=== PATIENT | female | born 1990 | race Caucasian/White ===

== ENCOUNTER → 2019-11-14 | Outpatient (CLI) | payer OTHER ==
--- NOTE | 2019-11-14 15:34 | US ---
EXAMINATION TYPE: Transabdominal DATE OF EXAM: 11/14/2019 1:07 PM COMPARISON: NONE CLINICAL HISTORY: Z34.90 supervision of normal . early OB EXAM PERFORMED: Transabdominal (TA) EXAM MEASUREMENTS: GESTATIONAL AGE / DATING Physician Established: Not yet established Dates by LMP: (9 weeks/2 days) EDC: 06/16/20 Dates by First Scan: No previous this is first scan Dates by Current Scan for: (8 weeks/6 days) EDC: 06/19/20 MATERNAL ANATOMY Uterus: 11.4 x 5.2 x 8.2cm Right Ovary: 2.7 x 2.2 x 2.8cm Left Ovary: 2.1 x 1.9 x 2.1cm Post CDS / Adnexa: wnl Presence of free fluid: no Presence of corpus luteal cyst: not seen Presence of subchorionic bleed: no GESTATION / SURVEY CRL: 2.1cm (8 weeks/6 days) MSD: wnl Yolk Sac (normal less than 6mm): 0.5cm Heart Rate: 160 bpm Rhythm: Normal IUP: Viable IUP Date of LMP: 09/10/19 IMPRESSION: Single viable intrauterine as discussed above.
== END | disposition home or self-care (01) ==
LOC: RADUSWWP 12:12
PROVIDERS: ATTEND Obstetrics & Gynecology
DX: Z34.90 Encounter for supervision of normal pregnancy, unspecified, unspecified trimester (principal); Z3A.08 8 weeks gestation of pregnancy
CPT/HCPCS: 76801

== ENCOUNTER 2022-05-23 08:33 | Inpatient (IN) | payer OTHER ==
[2022-05-23 09:02] LABS: Glucose,Whole Blood 147 mg/dL (70-110)
[2022-05-23] MEDS ORDERED: CITRIC ACID-SODIUM CITRATE 15 ML CUP PO ONE (09:09)
[2022-05-23] MEDS ORDERED: METHYLERGONOVINE 0.2 MG/ML 1 ML AMP IM PRN (09:09)
[2022-05-23] MEDS ORDERED: miSOPROStoL 200 MCG TAB PO PRN (09:09)
[2022-05-23] MEDS ORDERED: LACTATED RINGERS 1,000 ML IV ONE (09:09)
[2022-05-23] MEDS ORDERED: CARBOPROST TROMETHAMINE 250 MCG/ML 1 ML AMP IM PRN (09:09)
[2022-05-23] MEDS ORDERED: TRANEXAMIC ACID IN NACL,ISO-OS 1,000 MG in EMPTY BAG 1 BAG IV PRN (09:09)
[2022-05-23] MEDS ORDERED: OXYTOCIN 10 UNIT/ML 1 ML VIAL IM PRN (09:09)
[2022-05-23] MEDS ORDERED: LACTATED RINGERS 1,000 ML IV SCH (09:15)
[2022-05-23] MEDS ORDERED: ePHEDrine 50 MG/ML 1 ML VIAL ONE (09:27)
[2022-05-23] MEDS ORDERED: PHENYLEPHRINE-0.9% NACL SYG 1,000 MCG/10 ML SYRINGE ONE (09:27)
[2022-05-23] MEDS ORDERED: PROPOFOL 10 MG/ML 20 ML VIAL IV ONE (09:27)
[2022-05-23] MEDS ORDERED: ONDANSETRON 4 MG/2 ML VIAL ONE (09:27)
[2022-05-23] MEDS ORDERED: fentaNYL (PF) 50 MCG/ML 2 ML AMP ONE (09:27)
[2022-05-23] MEDS ORDERED: MORPHINE SULFATE (PF) 0.3 MG/0.3 ML SYR ONE (09:27)
[2022-05-23] MEDS ORDERED: NALBUPHINE 10 MG/ML (1 ML AMP) ONE (09:27)
[2022-05-23] MEDS ORDERED: SODIUM CHLORIDE 0.9% 100 ML BAG ONE (09:27)
[2022-05-23] MEDS ORDERED: ALBUMIN HUMAN 5% (12.5gm) 250 ML BOTTLE IVPB ONE (09:27)
[2022-05-23] MEDS ORDERED: ceFAZolin 1,000 MG VIAL ONE (09:27)
[2022-05-23] MEDS ORDERED: OXYTOCIN 30 UNITS/500 ML NS BAG IV ONE (09:27)
[2022-05-23] MEDS ORDERED: SUCCINYLCHOLINE CHLORIDE 200 MG/10 ML VIAL IV ONE (09:27)
[2022-05-23] MEDS ORDERED: DEXAMETHASONE SOD PHOSPHATE 4 MG/ML 1 ML VIAL ONE (09:27)
[2022-05-23 09:35] LABS: Basophils % (A) 0 %; Eosinophils % (A) 0 %; HCT 36.3 % (34.0-46.0); HGB 12.2 gm/dL (11.4-16.0); Lymphocytes # (A) 1.7 k/uL (1.0-4.8); Lymphocytes % (A) 13 %; MCH 28.9 pg (25.0-35.0); MCHC 33.6 g/dL (31.0-37.0); Mean Platelet Volume 10.2; Monocytes # (A) 0.5 k/uL (0-1.0); Monocytes % (A) 4 %; Neutrophils # (A) 10.7 k/uL (1.3-7.7); Neutrophils % (A) 81 %; Platelet Count 190 k/uL (150-450); RBC 4.22 m/uL (3.80-5.40); RDW 15.6 % (11.5-15.5); WBC 13.2 k/uL (3.8-10.6)
[2022-05-23] MEDS ORDERED: ZOLPIDEM 5 MG TAB PO PRN (10:47)
[2022-05-23] MEDS ORDERED: diphenhydrAMINE 50 MG CAP PO PRN (10:47)
[2022-05-23] MEDS ORDERED: LANOLIN CREAM 5 GM TUBE TOPICAL PRN (10:47)
[2022-05-23] MEDS ORDERED: ONDANSETRON 4 MG/2 ML VIAL IVP PRN (10:47)
[2022-05-23] MEDS ORDERED: MEASLES-MUMPS-RUBELLA VACC/PF 12,500 UNIT/0.5 ML VIAL SQ ONE (10:47)
[2022-05-23] MEDS ORDERED: METOCLOPRAMIDE 5 MG/ML 2 ML VIAL IVP PRN (10:47)
[2022-05-23] MEDS ORDERED: diphenhydrAMINE 50 MG/ML 1 ML VIAL IVP PRN ×2 (10:47)
[2022-05-23] MEDS ORDERED: diphenhydrAMINE 25 MG CAP PO PRN (10:47)
[2022-05-23] MEDS ORDERED: NALOXONE 0.4 MG/ML 1 ML VIAL IV PRN (10:47)
[2022-05-23] MEDS ORDERED: OXYTOCIN 30 UNITS/500 ML NS 30 UNIT in SALINE 1 500ML.BAG IV SCH (11:00)
--- NOTE | 2022-05-23 11:01 | P.HPOB ---
History of Present Illness H&P Date: 05/23/22 Chief Complaint: Contractions This is a 32 year old at 39 weeks and 1 day with EDC of 05/29/2022 (by 18 week US) who presents to labor and delivery 4 hours before her scheduled repeat section with frequent, painful contractions that started the morning of 05/22. She denies leakage of fluid. She also complains of gas-like pain and pain in her right shoulder. The was complicated by diet-controlled gestational diabetes. Obstetric history: 3 FTCS, 1st complicated by gestational HTN. Last 2 complicated by gestational diabetes. Maternal serologies: blood type O positive, antibody negative, rubella NON- IMMUNE, VDRL non-reactive, HBsAg negative, HIV negative, GBS POSITIVE. Past Medical History Past Surgical History: Section (x3) Medications and Allergies Home Medications Medication Instructions Recorded Confirmed Type Vit No.179/Iron/Folic 1 each PO DAILY 05/23/22 05/23/22 History [ Tablet] Allergies Allergy/AdvReac Type Severity Reaction Status Date / Time No Known Allergies Allergy Verified 05/23/22 08:53 Exam Intake and Output 05/22/22 05/23/22 05/23/22 22:59 06:59 14:59 Other: Weight 112.945 kg Focused physical exam is performed. The patient appears in distress from pain. She is diaphoretic. Abdomen is tender to palpation. heart tones are Category I with baseline of 140s, moderate variability, recurrent late decelerations. Tocometer is graphing contractions every 2-3 minutes. Results Result Diagrams: 05/23/22 09:00 Abnormal Lab Results - Last 24 Hours (Table) 05/23/22 05/23/22 05/23/22 Range/Units 08:56 09:00 09:00 WBC 13.2 H (3.8-10.6) k/uL RDW 15.6 H (11.5-15.5) % Neutrophils # 10.7 H (1.3-7.7) k/uL POC Glucose (mg/dL) 147 H (70-110) mg/dL Crossmatch See Detail Assessment and Plan Assessment: 32 year old at 39 weeks and 1 day who presents to L&D hours before her scheduled repeat C/S in labor, r/o placental abruption Plan: Admit, NPO, mIVF. Plan is to more to OR immediately for urgent repeat C/S with bilateral tubal ligation. Time with Patient: Less than 30 (15 minutes)
--- NOTE | 2022-05-23 11:18 | P.OP ---
Date of Procedure: 05/23/22 Preoperative Diagnosis: 1. 39 week intrauterine gestation 2. Diet-controlled gestational diabetes 3. Maternal Class III obesity 4. Labor 5. GBS positive 6. Category II Heart Tones Postoperative Diagnosis: 1. 39 week intrauterine gestation 2. Diet-controlled gestational diabetes 3. Maternal Class III obesity 4. Labor 5. Category II Heart Tones 6. GBS positive 7. Uterine rupture 8. Placental abruption 9. Breech presentation Procedure(s) Performed: Repeat Lower Transverse Section with Bilateral Salpingectomy Implants: None Anesthesia: GETA, spinal Surgeon: Kisha Villafana Lpn Per Diem #1: Keenan Garcia Estimated Blood Loss (ml): 2,000 IV fluids (ml): 1,000 (plus 2 of albumin, 2 units of pRBCs) Urine output (ml): 50 Pathology: other (placenta, bilateral fallopian tubes) Condition: stable Disposition: floor Indications for Procedure: This is a 32 year old at 39 weeks and 1 day who presents hours before her scheduled repeat section with severe abdominal pain, frequent uterine contractions, and right shoulder pain. heart tracing shows persistent Category II tones. Urgent section is recommended to the patient for maternal and well being. Risks of bleeding, infection, damage to surrounding structures including bladder/bowel/ureters, as well as postoperative VTE are discussed with the patient. She understands these risks and agrees to proceed with section as scheduled. Operative Findings: Upon entering the fascia, 1,000 mL in hemoperitoneum is released. Promptly after the buttocks is presenting and the fetus is delivered using the usual breech maneuvers. Placenta was noted to be abrupting from the uterine wall. After the patient was stabilized and the fetus had been delivered, there was a mesh-like material noted to be incorporated into the uterine incision. Uterus otherwise unremarkable, bilateral fallopian tubes and ovaries within normal l imits. Another 1,000 mL in hemoperitoneum was removed during irrigation. The fetus had apgars of 3/6/7 and weight of 9#15oz (4500 grams). . Description of Procedure: The patient was taken to the operating room where spinal anesthesia was found to be adequate. 3 grams of Ancef were given for infection prophylaxis. She was prepared and draped in the dorsal supine position with a leftward tilt. A Pfannenstiel skin incision was made with the scalpel. The incision was carried down to the fascia with a bovie. The fascia was incised and extended laterally with Morris scissors. The superior aspect of the fascia was grasped with Camille clamps. The underlying rectus muscle was dissected off sharply with Morris scissors. In a similar fashion, the inferior aspect of the fascia was elevated with Camille clamps and the rectus muscle and pyramidalis were dissected off. Excellent hemostasis was achieved with the bovie. The rectus muscle was in the midline down to the level of the pubic symphysis. Pre- peritoneal fatty tissue was bluntly dissected to expose the peritoneum. The peritoneum was found to be free of adherent bowel and entered bluntly. After entering the peritoneum, 1,000 mL of blood clots in the abdomen were released as described in the findings. This was followed by the buttocks. The fetus was in elena breech presentation. The amniotic sac appeared to already be ruptured. The fetus was delivered using the usual breech maneuvers. The infant was delivered with no difficulty. The cord was clamped and cut. The was handed off to the meteorologist liaison. IV oxytocin was initiated to facilitate uterine contractions. The placenta was noted to have abrupted and was delivered intact. The placenta was sent off to pathology. At this time, anesthesia noted that the patient's vitals were not stable. Intraoperative hemoglobin was 9.9 (down from 12.2). 2 of albumin were given. The order was also placed for the patient to re ceive 2 units of packed red blood cells. The patient was placed under general endotracheal anesthesia at this time. The uterus was then exteriorized and the inside of the uterus was gently wiped with a lap sponge to assure complete removal of placental membranes. The prior uterine incision was completed dehisced. Of note, there was a mesh-like material embedded into the prior uterine scar. The uterine incision was closed with a 0-Polysorb suture in a running locked fashion. A second layer of 0-Polysorb in a locking fashion was placed for hemostasis. The ovaries and tubes were found to be normal. The LigaSure device was used to ligate and remove bilateral fallopian tubes. Tubes were sent to pathology. The uterus, tubes, and ovaries were then gently returned to the abdominal cavity. The blood clots and fluid were wiped out of the abdomen and pelvis with moist laparotomy sponges. The uterine incision was reinspected and excellent hemostasis was noted. The peritoneum was closed with 2-0 Vicryl in a running fashion. The fascial layer was closed with a 0-Vicryl suture. The subcuticular layer was closed with 2-0 Plain Gut. The skin was closed with lizzie. The patient tolerated the procedure well. All the counts were correct times two. The patient was taken to the recovery room in a stable condition.
[2022-05-23] MEDS: ACETAMINOPHEN TAB 500 MG TAB PO SCH ×2 (13:06→19:45)
[2022-05-23] MEDS: SIMETHICONE 80 MG CHEWABLE PO PRN ×2 (13:06→22:30)
[2022-05-23 14:31] LABS: Glucose,Whole Blood 179 mg/dL (70-110)
[2022-05-23] MEDS: INSULIN ASPART (NovoLOG) 100 UNIT/ML VIAL SQ SCH ×3 (16:06→20:29)
[2022-05-23] MEDS: KETOROLAC 15 MG/ML 1 ML VIAL IVP SCH ×2 (16:21→22:21)
--- NOTE | 2022-05-23 16:55 | P.PN ---
Progress Note - Text Progress Note Date: 05/23/22 S: Patient doing well. Finishing second bag of packed RBCs. Reviewed with the patient what occurred this morning and the operative findings. All questions answered. O: Vital signs stable. A/P: 32 yo POD#0 s/p rLTCS with BS complicated by complete uterine rupture and placental abruption. Continue inpatient management. Await 6 hour post-transfusion H+H.
[2022-05-23] MEDS: LACTATED RINGERS 1,000 ML IV SCH ×2 (17:06→19:46)
[2022-05-23 17:16] LABS: Glucose,Whole Blood 177 mg/dL (70-110)
--- NOTE | 2022-05-23 18:29 | P.CONS ---
History of Present Illness - Reason for Consult Consult date: 05/23/22 - Chief Complaint hyperglycemia - History of Present Illness 32-year-old woman with history of diabetes with an A1c of 6.0 percent, gestational hypertension presented to labor and delivery with frequent, painful contractions and is now status post with bilateral salpingectomy for noted complication of uterine rupture and placental abruption. Medicine was consulted for hyperglycemia in the context of gestational diabetes. Patient has no complaints at this time except for some sweats as she is getting blood. She denies fevers, chills, nausea, vomiting, chest pain, palpitations, CVA, presyncope, cough, dyspnea, numbness/weakness of extremities. She denies polyuria, polydipsia. Upon my evaluation, patient was afebrile 106/54, heart rate 103, 96% on room air. CBC was reviewed and demonstrated leukocytosis of 13.2, hemoglobin of 12.2. Postprandial blood sugars taken 2 hours after meals she'll range between 147-179. Hemoglobin A1c was 6.2%. All Systems reviewed and pertinent positives and negatives noted in HPI, all other symptoms are negative Gen: in no apparent distress, resting comfortably in bed Eyes: PERRL, no scleral injection or icterus HENT: normocephalic, atraumatic, good hearing acuity, moist mucous membranes Neck: no tracheal deviation, full range of motion Resp: good air exchange, breathing comfortably with no accessory muscle use, no tactile fremitus CVS: good distal perfusion x 4, no pitting edema GI: soft, NTTP, ND, no hepatosplenomegaly : no suprapubic tenderness, no CVAT, alvarez catheter not present MSK: no clubbing, no cyanosis, no noted contractures of extremities Skin: no noted rashes, petechiae; temperature of skin is appropriate Neuro: moving all extremities without signs of weakness, CN II-XII intact Psych: cooperative, euthymic mood, insight and judgment intact Assessment: Gestational diabetes with hyperglycemia Prediabetes Gestational hypertension Obesity, class III Plan: Vital signs reviewed and noted in HPI CBC, sugars, hemoglobin A1c were reviewed and noted in HPI REVIEW APPRAISER operative note and progress note reviewed Change sugar checks to before meals at bedtime Low-dose sliding scale insulin On discharge, recommend diet changes, 6 months , patient may consider metformin Recommend outpatient weight loss plan Patient is full code Past Medical History Past Medical History: GERD/Reflux History of Any Multi-Drug Resistant Organisms: None Reported Past Surgical History: Section (x3) Past Anesthesia/Blood Transfusion Reactions: No Reported Reaction Past Psychological History: ADD/ADHD, Anxiety, Depression Smoking Status: Former smoker Past Alcohol Use History: None Reported Past Drug Use History: None Reported - Past Family History Father Family Medical History: Diabetes Mellitus, Hypertension Mother Family Medical History: Diabetes Mellitus, Hypertension Medications and Allergies Home Medications Medication Instructions Recorded Confirmed Type Vit No.179/Iron/Folic 1 each PO DAILY 05/23/22 05/23/22 History [ Tablet] Allergies Allergy/AdvReac Type Severity Reaction Status Date / Time No Known Allergies Allergy Verified 05/23/22 08:53 Physical Exam Osteopathic Statement: *. No significant issues noted on an osteopathic structural exam other than those noted in the History and Physical/Consult. Vitals: Vital Signs Temp Pulse Pulse Resp BP BP Pulse Ox 05/23/22 17:16 98.4 F 103 H 17 106/54 96 05/23/22 16:00 84 17 90/48 96 05/23/22 15:38 96.1 F L 97 17 107/56 94 L 05/23/22 15:18 9.5 F L 95 18 117/60 05/23/22 15:09 96.4 F L 93 17 115/56 96 05/23/22 14:19 96.4 F L 106 H 17 113/53 97 05/23/22 13:03 95.8 F L 110 H 17 105/56 93 L 05/23/22 12:52 96.2 F L 110 H 17 108/56 05/23/22 12:33 96.5 F L 102 H 18 119/61 96 05/23/22 12:32 96.5 F L 102 H 18 119/61 96 05/23/22 12:03 112 H 18 129/66 100 05/23/22 11:48 116 H 18 135/83 100 05/23/22 11:33 116 H 18 129/68 100 05/23/22 11:18 115 H 18 124/62 94 L 05/23/22 11:03 96.9 F L 139 H 20 120/54 98 05/23/22 09:00 96.9 F L 139 H 18 126/64 98 Intake and Output 05/23/22 05/23/22 05/23/22 06:59 14:59 22:59 Intake Total 310 1430 Output Total 1935 350 Balance -1625 1080 Intake: IV 500 Blood Product 310 930 Rc As-1 Unit 310 [id number] Rc As-1 Unit 310 [id number] Output: Urine 250 150 Output, Quantitative 1685 200 Blood Loss Other: Voiding Method Indwelling Catheter Indwelling Catheter Weight 112.945 kg Results CBC & Chem 7: 05/23/22 09:00 Labs: Abnormal Lab Results - Last 24 Hours (Table) 05/23/22 05/23/22 05/23/22 Range/Units 08:56 09:00 09:00 WBC 13.2 H (3.8-10.6) k/uL RDW 15.6 H (11.5-15.5) % Neutrophils # 10.7 H (1.3-7.7) k/uL POC Glucose (mg/dL) 147 H (70-110) mg/dL Hemoglobin A1c 6.2 H (0.0-6.0) % Crossmatch 05/23/22 05/23/22 05/23/22 Range/Units 09:00 14:27 17:14 WBC (3.8-10.6) k/uL RDW (11.5-15.5) % Neutrophils # (1.3-7.7) k/uL POC Glucose (mg/dL) 179 H 177 H (70-110) mg/dL Hemoglobin A1c (0.0-6.0) % Crossmatch See Detail
[2022-05-23 20:21] LABS: Glucose,Whole Blood 173 mg/dL (70-110)
[2022-05-24 00:16] LABS: Basophils % (A) 0 %; Eosinophils % (A) 0 %; HCT 27.4 % (34.0-46.0); Lymphocytes # (A) 1.3 k/uL (1.0-4.8); Lymphocytes % (A) 11 %; MCHC 34.5 g/dL (31.0-37.0); MCV 87.1 fL (80.0-100.0); Mean Platelet Volume 10.9; Monocytes # (A) 0.7 k/uL (0-1.0); Monocytes % (A) 6 %; Neutrophils # (A) 9.7 k/uL (1.3-7.7); Neutrophils % (A) 82 %; Platelet Count 130 k/uL (150-450); RBC 3.14 m/uL (3.80-5.40); RDW 15.5 % (11.5-15.5); WBC 11.9 k/uL (3.8-10.6)
[2022-05-24 00:36] LABS: HGB 9.4 gm/dL (11.4-16.0)
[2022-05-24] MEDS: ACETAMINOPHEN TAB 500 MG TAB PO SCH ×4 (01:07→20:03)
[2022-05-24] MEDS: KETOROLAC 15 MG/ML 1 ML VIAL IVP SCH ×4 (04:26→23:05)
[2022-05-24] MEDS: LACTATED RINGERS 1,000 ML IV SCH (04:27)
[2022-05-24] MEDS: INSULIN ASPART (NovoLOG) 100 UNIT/ML VIAL SQ SCH ×4 (07:30→20:10)
[2022-05-24 07:32] LABS: Glucose,Whole Blood 130 mg/dL (70-110)
[2022-05-24] MEDS ORDERED: ENOXAPARIN 40 MG/0.4 ML SYRINGE SQ SCH (09:00)
--- NOTE | 2022-05-24 09:25 | P.PNOBGPC ---
Subjective - Subjective Patient reports: Reports appetite normal, Reports voiding normally, Reports pain well controlled, Reports ambulating normally : doing well, in NICU Objective - Vital Signs Latest vital signs: Vital Signs Temp Pulse Pulse Resp BP BP Pulse Ox 05/24/22 07:30 98.4 F 102 H 14 105/69 100 05/24/22 04:00 97.5 F L 93 16 101/63 98 05/24/22 00:00 98.6 F 91 16 116/68 98 05/23/22 20:00 97.9 F 78 16 109/65 98 05/23/22 17:16 98.4 F 103 H 17 106/54 96 05/23/22 16:00 84 17 90/48 96 05/23/22 15:38 96.1 F L 97 17 107/56 94 L 05/23/22 15:18 9.5 F L 95 18 117/60 05/23/22 15:09 96.4 F L 93 17 115/56 96 05/23/22 14:19 96.4 F L 106 H 17 113/53 97 05/23/22 13:03 95.8 F L 110 H 17 105/56 93 L 05/23/22 12:52 96.2 F L 110 H 17 108/56 05/23/22 12:33 96.5 F L 102 H 18 119/61 96 05/23/22 12:32 96.5 F L 102 H 18 119/61 96 05/23/22 12:03 112 H 18 129/66 100 05/23/22 11:48 116 H 18 135/83 100 05/23/22 11:33 116 H 18 129/68 100 05/23/22 11:18 115 H 18 124/62 94 L 05/23/22 11:03 96.9 F L 139 H 20 120/54 98 Intake and Output 05/23/22 05/24/22 05/24/22 22:59 06:59 14:59 Intake Total 1430 Output Total 750 600 Balance 680 -600 Intake: IV 500 Blood Product 930 Rc As-1 Unit 310 [id number] Output: Urine 550 600 Uretheral (Nugent) 200 Output, Quantitative 200 Blood Loss Other: Voiding Method Indwelling Catheter - Exam Extremities: Present: normal Abdomen: Present: normal appearance, soft. Absent: distention, tenderness Incision: Present: normal, dry, intact, dressed Uterus: Present: normal, firm (uterine fundus was tonic and appropriately tender around the umbilicus.) - Labs Labs: Abnormal Lab Results - Last 24 Hours (Table) 05/23/22 05/23/22 05/23/22 Range/Units 09:00 09:00 09:00 WBC 13.2 H (3.8-10.6) k/uL RBC (3.80-5.40) m/uL Hgb (11.4-16.0) gm/dL Hct (34.0-46.0) % RDW 15.6 H (11.5-15.5) % Plt Count (150-450) k/uL Neutrophils # 10.7 H (1.3-7.7) k/uL POC Glucose (mg/dL) (70-110) mg/dL Hemoglobin A1c 6.2 H (0.0-6.0) % Crossmatch See Detail 05/23/22 05/23/22 05/23/22 Range/Units 14:27 17:14 20:20 WBC (3.8-10.6) k/uL RBC (3.80-5.40) m/uL Hgb (11.4-16.0) gm/dL Hct (34.0-46.0) % RDW (11.5-15.5) % Plt Count (150-450) k/uL Neutrophils # (1.3-7.7) k/uL POC Glucose (mg/dL) 179 H 177 H 173 H (70-110) mg/dL Hemoglobin A1c (0.0-6.0) % Crossmatch 05/23/22 05/24/22 Range/Units 23:57 07:30 WBC 11.9 H (3.8-10.6) k/uL RBC 3.14 L (3.80-5.40) m/uL Hgb 9.4 L D (11.4-16.0) gm/dL Hct 27.4 L (34.0-46.0) % RDW (11.5-15.5) % Plt Count 130 L (150-450) k/uL Neutrophils # 9.7 H (1.3-7.7) k/uL POC Glucose (mg/dL) 130 H (70-110) mg/dL Hemoglobin A1c (0.0-6.0) % Crossmatch Assessment and Plan (1) S/P section Current Visit: Yes Status: Acute Code(s): Z98.891 - HISTORY OF UTERINE SCAR FROM PREVIOUS SURGERY SNOMED Code(s): 738443558 Plan: continue routine and postoperative care. The patient may be stable for discharge as early as tomorrow but will likely remain as long as necessary for the up to a maximum of 4 days. I have encouraged routine ambulation in the hallways. She is otherwise tolerating regular diet and performing all activities of daily living. Appreciate input from internal medicine and management of ongoing blood sugar concerns.
[2022-05-24] MEDS: polyethylene glycoL 3350 17 GM POWD.PACK PO SCH (10:04)
--- NOTE | 2022-05-24 10:47 | P.PN ---
Progress Note - Text Progress Note Date: 05/24/22 Ms. Aguirre is a 32-year-old female had a history of under spinal anal gesia with Astramorph 300 g for postop pain . She was also intubated for the procedure. Today patient is comfortable sitting in her bed. Today patient rated her pain level 3 out of 10 in severity. Denied any fever, drowsiness, confusion. Denied any weakness, tingling sensation in her lower extremities. Denied any bowel or bladder problems. Moving all extremities without any difficulty. Able to walk without any difficulties. Vitals: Hemodynamically stable Continue oral pain medication as per primary team.
[2022-05-24 12:04] LABS: Glucose,Whole Blood 129 mg/dL (70-110)
--- NOTE | 2022-05-24 12:16 | P.PN ---
Subjective Progress Note Date: 05/24/22 (delayed charting seen at 0945) Patient is a 32-year-old female with a history of gestational diabetes with A1c onset of of 60 who has been diet controlled at home now status post C- section. Patient seen and examined at bedside. She reports that she has been diet controlled with being diagnosed from her glucose tolerance test. We reviewed her home blood sugars which have been ranging from 96 to approximately 118. She denies any unusual pain or shortness of breath. Vital signs reviewed General: nontoxic, no distress, appears at stated age Cardiovascular: S1S2 reg, no murmur, positive posterior tibial pulse bilateral, Lungs: CTA bilateral, no rhonchi, no rales , no accessory muscle use Abdominal: soft, nontender to palpation, no guarding, no appreciable organome daisha Ext: no gross muscle atrophy, no edema, no contractures Neuro: CN II-XI grossly intact, no focal neuro deficits Psych: Alert, oriented, appropriate affect Assessment: Gestational diabetes with hyperglycemia Suspect underlying prediabetes Gestational hypertension Obesity class III Imaging: None new for review. Data Review: Vital signs from this morning at 7:30 showed temperature of 98.4, pulse 102, respirations 14, blood pressure 105/96. A.m. fasting blood sugar 130, nocturnal blood sugar is 173 and 177. Plan: - Continue with sliding scale insulin. Plan for discharge is diet controlled. Patient will take her blood sugar fasting in the morning and then one 2 hour postprandial blood sugar. -She'll establish with Dr. Nunn for her primary care physician and is aware she needs to have an A1c checked in 90 days. Thank you for allowing us to participate in the care of this pleasant patient. Do not hesitate to contact us with questions. Someone can be reached from the [facility] hospitalist group all hours of the day at [phone] or via [email or web address]. This dictation was prepared using [employer] voice recognition software. Though every attempt is made to correct errors during during dictation some may still exist. Objective - Vital Signs Vital signs: Vital Signs Temp 98.4 F 05/24/22 12:11 Pulse 90 05/24/22 12:11 Resp 16 05/24/22 12:11 BP 103/66 05/24/22 12:11 Pulse Ox 97 05/24/22 12:11 FiO2 Intake & Output 0305/24/22 05/24/22 18:59 06:59 18:59 Intake Total 1740 Output Total 2285 1000 Balance -545 -1000 Weight 112.945 kg Intake: IV 500 Blood Product 1240 Rc As-1 Unit 310 [id number] Rc As-1 Unit 310 [id number] Output: Urine 400 1000 Uretheral (Nugent) 200 Output, Quantitative 1885 Blood Loss Other: Voiding Method Indwelling Catheter - Labs CBC & Chem 7: 05/23/22 23:57 Labs: Abnormal Lab Results - Last 24 Hours (Table) 05/23/22 05/23/22 05/23/22 Range/Units 09:00 09:00 14:27 WBC (3.8-10.6) k/uL RBC (3.80-5.40) m/uL Hgb (11.4-16.0) gm/dL Hct (34.0-46.0) % Plt Count (150-450) k/uL Neutrophils # (1.3-7.7) k/uL POC Glucose (mg/dL) 179 H (70-110) mg/dL Hemoglobin A1c 6.2 H (0.0-6.0) % Crossmatch See Detail 05/23/22 05/23/22 05/23/22 Range/Units 17:14 20:20 23:57 WBC 11.9 H (3.8-10.6) k/uL RBC 3.14 L (3.80-5.40) m/uL Hgb 9.4 L D (11.4-16.0) gm/dL Hct 27.4 L (34.0-46.0) % Plt Count 130 L (150-450) k/uL Neutrophils # 9.7 H (1.3-7.7) k/uL POC Glucose (mg/dL) 177 H 173 H (70-110) mg/dL Hemoglobin A1c (0.0-6.0) % Crossmatch 05/24/22 05/24/22 Range/Units 07:30 12:01 WBC (3.8-10.6) k/uL RBC (3.80-5.40) m/uL Hgb (11.4-16.0) gm/dL Hct (34.0-46.0) % Plt Count (150-450) k/uL Neutrophils # (1.3-7.7) k/uL POC Glucose (mg/dL) 130 H 129 H (70-110) mg/dL Hemoglobin A1c (0.0-6.0) % Crossmatch
[2022-05-24 12:50] LABS: Basophils % (A) 0 %; Eosinophils % (A) 0 %; HCT 28.6 % (34.0-46.0); HGB 9.8 gm/dL (11.4-16.0); Lymphocytes # (A) 1.8 k/uL (1.0-4.8); Lymphocytes % (A) 15 %; MCH 30.4 pg (25.0-35.0); MCHC 34.2 g/dL (31.0-37.0); MCV 88.8 fL (80.0-100.0); Mean Platelet Volume 10.1; Monocytes # (A) 0.7 k/uL (0-1.0); Monocytes % (A) 6 %; Neutrophils # (A) 9.1 k/uL (1.3-7.7); Neutrophils % (A) 77 %; Platelet Count 152 k/uL (150-450); RBC 3.22 m/uL (3.80-5.40); RDW 15.6 % (11.5-15.5); WBC 11.8 k/uL (3.8-10.6)
[2022-05-24 18:06] LABS: Glucose,Whole Blood 122 mg/dL (70-110)
[2022-05-24 20:03] LABS: Glucose,Whole Blood 133 mg/dL (70-110)
[2022-05-25] MEDS: ACETAMINOPHEN TAB 500 MG TAB PO SCH ×4 (06:55→20:20)
[2022-05-25] MEDS: KETOROLAC 15 MG/ML 1 ML VIAL IVP SCH (06:57)
[2022-05-25 07:40] LABS: Glucose,Whole Blood 89 mg/dL (70-110)
[2022-05-25] MEDS: SIMETHICONE 80 MG CHEWABLE PO PRN ×4 (07:48→23:26)
[2022-05-25] MEDS: INSULIN ASPART (NovoLOG) 100 UNIT/ML VIAL SQ SCH (08:32)
--- NOTE | 2022-05-25 08:45 | P.PNOBGPC ---
Subjective - Subjective Patient reports: Reports appetite normal, Reports voiding normally, Reports pain well controlled, Reports ambulating normally : doing well, in NICU (on prophylactic antibiotics and receiving high flow oxygen.) Objective - Vital Signs Latest vital signs: Vital Signs Temp Pulse Resp BP Pulse Ox 05/25/22 08:00 98.2 F 100 16 121/76 97 05/25/22 00:00 98.5 F 85 18 117/73 98 05/24/22 16:11 99.3 F 102 H 16 112/74 96 05/24/22 12:11 98.4 F 90 16 103/66 97 Intake and Output 05/24/22 05/25/22 05/25/22 22:59 06:59 14:59 Other: # Voids 1 2 - Exam Extremities: Present: normal Abdomen: Present: normal appearance, soft. Absent: distention, tenderness Incision: Present: normal, dry, intact Uterus: Present: normal, firm - Labs Labs: Abnormal Lab Results - Last 24 Hours (Table) 05/24/22 05/24/22 05/24/22 Range/Units 10:00 12:01 18:04 WBC 11.8 H (3.8-10.6) k/uL RBC 3.22 L (3.80-5.40) m/uL Hgb 9.8 L (11.4-16.0) gm/dL Hct 28.6 L (34.0-46.0) % RDW 15.6 H (11.5-15.5) % Neutrophils # 9.1 H (1.3-7.7) k/uL POC Glucose (mg/dL) 129 H 122 H (70-110) mg/dL 05/24/22 Range/Units 20:02 WBC (3.8-10.6) k/uL RBC (3.80-5.40) m/uL Hgb (11.4-16.0) gm/dL Hct (34.0-46.0) % RDW (11.5-15.5) % Neutrophils # (1.3-7.7) k/uL POC Glucose (mg/dL) 133 H (70-110) mg/dL Assessment and Plan (1) S/P section Current Visit: Yes Status: Acute Code(s): Z98.891 - HISTORY OF UTERINE SCAR FROM PREVIOUS SURGERY SNOMED Code(s): 572980884 Plan: continue routine and postoperative care. Unless the makes a quick recovery, I would anticipate the patient remaining hospitalized until hospital day 4 which time instruments would dictate that she must be discharged.
[2022-05-25] MEDS: polyethylene glycoL 3350 17 GM POWD.PACK PO SCH (09:26)
[2022-05-25] MEDS: IBUPROFEN 600 MG TAB PO SCH ×3 (09:56→23:26)
--- NOTE | 2022-05-25 16:29 | P.PN ---
Subjective Progress Note Date: 05/25/22 Patient is a 32-year-old female with a history of gestational diabetes with A1c onset of of 58 who has been diet controlled at home now status post C- section. Patient seen and examined at bedside. Doing well. Pain is well controlled. No nausea, no vomiting, no diarrhea. Vital signs reviewed General: nontoxic, no distress, appears at stated age Cardiovascular: S1S2 reg, no murmur, positive posterior tibial pulse bilateral, Lungs: CTA bilateral, no rhonchi, no rales , no accessory muscle use Abdominal: soft, nontender to palpation, no guarding, no appreciable o rganomegaly Ext: no gross muscle atrophy, no edema, no contractures Neuro: CN II-XI grossly intact, no focal neuro deficits Psych: Alert, oriented, appropriate affect Assessment: Gestational diabetes with hyperglycemia Suspect underlying prediabetes Gestational hypertension Obesity class III Data Review: AM fasting blood sugar 89, overnight blood sugars 133, and 122. Plan: -Patient has not required any insulin administration in the last 24 hours. Will decrease Accu-Cheks to AM fasting only. Patient plans to establish with Dr. Nunn for primary care physician on discharge. We discussed that she should check and fasting blood sugars and make a log. As long as they are staying less than 126 she does not need to check any additional blood sugars. She ideally should have a hemoglobin A1c checked in 90 days to ensure that she does not continue to be diabetic or prediabetic outside of her . She does have a strong family history of diabetes. These recommendations were added to the discharge. -We will sign off of this patient as she is no longer requiring treatment for her gestational diabetes. Please do not hesitate to contact us with any questions or concerns. I will chart review her blood sugars in the morning. If she does require insulin and will reevaluate the patient. Thank you for allowing us to participate in the care of this pleasant patient. Do not hesitate to contact us with questions. Someone can be reached from the [facility] hospitalist group all hours of the day at [phone] or via [employer] This dictation was prepared using [employer] voice recognition software. Though every attempt is made to correct errors during during dictation some may still exist. Objective - Vital Signs Vital signs: Vital Signs Temp 98.2 F 05/25/22 08:00 Pulse 100 05/25/22 08:00 Resp 16 05/25/22 08:00 BP 121/76 05/25/22 08:00 Pulse Ox 97 05/25/22 08:00 FiO2 Intake & Output 05/24/22 05/25/22 05/25/22 18:59 06:59 18:59 Other: # Voids 2 2 - Labs CBC & Chem 7: 05/24/22 10:00 Labs: Abnormal Lab Results - Last 24 Hours (Table) 05/24/22 05/24/22 05/24/22 Range/Units 10:00 12:01 18:04 WBC 11.8 H (3.8-10.6) k/uL RBC 3.22 L (3.80-5.40) m/uL Hgb 9.8 L (11.4-16.0) gm/dL Hct 28.6 L (34.0-46.0) % RDW 15.6 H (11.5-15.5) % Neutrophils # 9.1 H (1.3-7.7) k/uL POC Glucose (mg/dL) 129 H 122 H (70-110) mg/dL 05/24/22 Range/Units 20:02 WBC (3.8-10.6) k/uL RBC (3.80-5.40) m/uL Hgb (11.4-16.0) gm/dL Hct (34.0-46.0) % RDW (11.5-15.5) % Neutrophils # (1.3-7.7) k/uL POC Glucose (mg/dL) 133 H (70-110) mg/dL
[2022-05-26] MEDS: IBUPROFEN 600 MG TAB PO SCH ×5 (05:45→23:48)
[2022-05-26 05:49] LABS: Glucose,Whole Blood 136 mg/dL (70-110)
[2022-05-26] MEDS: ACETAMINOPHEN TAB 500 MG TAB PO SCH ×4 (05:49→21:35)
[2022-05-26] MEDS: SIMETHICONE 80 MG CHEWABLE PO PRN ×3 (07:41→15:37)
--- NOTE | 2022-05-26 08:38 | P.PNOBGPC ---
Subjective - Subjective Patient reports: Reports appetite normal, Reports voiding normally, Reports pain well controlled, Reports ambulating normally : doing well, in NICU (significant improvement, infant off of oxygen supplementation, feeding well.) Objective - Vital Signs Latest vital signs: Vital Signs Temp Pulse Resp BP Pulse Ox 05/26/22 08:00 97.9 F 81 16 137/85 99 05/26/22 00:00 97.8 F 90 16 102/63 99 05/25/22 15:59 97.9 F 96 16 120/75 98 - Exam Extremities: Present: normal Abdomen: Present: normal appearance, soft. Absent: distention, tenderness Incision: Present: normal, dry, intact, dressed Uterus: Present: normal, firm (the uterine fundus is chronic and minimally tender below the umbilicus.) - Labs Labs: Abnormal Lab Results - Last 24 Hours (Table) 05/26/22 Range/Units 05:47 POC Glucose (mg/dL) 136 H (70-110) mg/dL Assessment and Plan (1) S/P section Current Visit: Yes Status: Acute Code(s): Z98.891 - HISTORY OF UTERINE SCAR FROM PREVIOUS SURGERY SNOMED Code(s): 908869919 Plan: continue routine and postoperative care. The patient will most certainly be discharged home tomorrow on postoperative day #4 as this is the maximum time allowed in the absence of complications by insurance. I have continued to encourage her to ambulate in the hallways. We will additionally remove her lizzie and place Steri-Strips tomorrow.
[2022-05-26] MEDS: polyethylene glycoL 3350 17 GM POWD.PACK PO SCH (09:05)
[2022-05-27] MEDS: ACETAMINOPHEN TAB 500 MG TAB PO SCH ×2 (03:23→09:07)
[2022-05-27] MEDS: IBUPROFEN 600 MG TAB PO SCH ×2 (06:00→10:20)
[2022-05-27 06:30] LABS: Glucose,Whole Blood 128 mg/dL (70-110)
[2022-05-27] MEDS: polyethylene glycoL 3350 17 GM POWD.PACK PO SCH (09:09)
[2022-05-27 09:28] VITALS: BP 130/83; PULSE 83; RESP 18; TEMP 97.9
--- NOTE | 2022-05-27 09:47 | P.DS ---
Providers Date of admission: 05/23/22 08:33 Expected date of discharge: 05/27/22 Attending physician: Kisha Villafana MD Consults: 05/23/22 15:57 Consult Physician Urgent Consulting Provider: Kassidy Benton Consult Reason/Comments: insulin managment Do you want consulting provider notified?: Yes Primary care physician: Stated None - Discharge Diagnosis(es) (1) S/P section Current Visit: Yes Status: Acute Hospital Course: the patient is a 32-year-old 5 para 3013 admitted at 39 and one sevenths weeks by good dating parameters. She is admitted in apparent active labor on the day of her planned repeat section having undergone section the past. She presents with significant frequent and very painful contractions and significant discomfort otherwise. heart tones are nonreassuring with repetitive late decelerations. As a result, she was taken immediately to the operating room where she was delivered of a viable 9 lbs. 15 oz. baby girl with Apgars of 3 at 1 minute, 6 at 5 minutes, and 7 at 10 minutes. Intraoperatively she was found to have complete uterine rupture of the previous incision with ongoing placental abruption and as much is 8398-0815 ml of blood and clot outside the uterus in the abdomen and upper abdomen. The patient after this had an uncomplicated completion of the procedure. She did have 2 units of blood transfused without difficulty. Her and postoperative care was otherwise completely uncomplicated with vital signs remaining stable and her temperature was afebrile throughout. She remained in the hospital until postoperative day #4 secondary to the remaining in the nursery for ongoing treatment and evaluation. She was deemed stable for discharge on the morning of operative and day #4 and was discharged home to follow-up in the office in 2 weeks for incision check and 6 weeks routinely. Discharge instructions included calling for any significantly increased bleeding or foul-smelling lochia, significantly increased fever or abdominal pain, perineal complaints, breast complaints, incisional complaints, or anything else that concerned her. She was additionally instructed to have nothing in the vagina for at least 6 weeks time to include intercourse. She is instructed to do no heavy lifting over the same period of time. She was last instructed to do no driving until off all pain medications, or 2 weeks' time, whichever came first. She understood all of her instructions and agrees to follow up as noted above. Discharge medications included only [id number] analgesic pain medications as well as continued vitamins as she has opted to breast- feed. Maternal blood type is O+ and rubella status is nonimmune. She therefore was to receive the MMR vaccination prior to discharge. She did have bilateral salpingectomy performed during the procedure. discharge hemoglobin and hematocrit were 9.8 at 28.6 respectively. Procedures: #1. Emergent repeat low transverse section #2. Intraoperative bilate ral salpingectomy #3. Transfusion of 2 units of packed red blood cells #4. Internal medicine consultation Patient Condition at Discharge: Stable Plan - Discharge Summary New Discharge Prescriptions: No Action Vit No.179/Iron/Folic [ Tablet] 1 each PO DAILY Discharge Medication List Vit No.179/Iron/Folic [ Tablet] 1 each PO DAILY 05/23/22 [History] Follow up Appointment(s)/Referral(s): Park Nunn MD [REFERRING] - 2 Weeks Kisha Villafana MD [STAFF PHYSICIAN] - 2 Weeks Activity/Diet/Wound Care/Special Instructions: Special Instructions: Please continue to monitor morning fasting blood sugars on discharge and make a list for your appointment with Dr. Nunn. Please ensure that you get a repeat A1C in approx 3 months. Discharge Disposition: HOME SELF-CARE
== END 2022-05-27 10:30 | disposition home or self-care (01) | DRG 539 ==
LOC: 4FBP 08:33
PROVIDERS: ADMIT Obstetrics & Gynecology; ATTEND Obstetrics & Gynecology
PROC: 30233N1 Transfusion of Nonautologous Red Blood Cells into Peripheral Vein, Percutaneous Approach (ICD-10-PCS; 2022-05-23)
PROC: 10D00Z1 Extraction of Products of Conception, Low, Open Approach (ICD-10-PCS; principal; 2022-05-23 12:00)
PROC: 0UB70ZZ Excision of Bilateral Fallopian Tubes, Open Approach (ICD-10-PCS; principal; 2022-05-23 12:00)
PROC: 0UQ90ZZ Repair Uterus, Open Approach (ICD-10-PCS; principal; 2022-05-23 12:00)
DX: O24.420 Gestational diabetes mellitus in childbirth, diet controlled (principal); O34.211 Maternal care for low transverse scar from previous cesarean delivery; O32.1XX0 Maternal care for breech presentation, not applicable or unspecified; O71.1 Rupture of uterus during labor; O76 Abnormality in fetal heart rate and rhythm complicating labor and delivery; O99.12 Other diseases of the blood and blood-forming organs and certain disorders involving the immune mechanism complicating childbirth; E66.01 Morbid (severe) obesity due to excess calories; Z68.42 Body mass index [BMI] 45.0-49.9, adult; D72.829 Elevated white blood cell count, unspecified; K66.1 Hemoperitoneum; O13.4 Gestational [pregnancy-induced] hypertension without significant proteinuria, complicating childbirth; O99.214 Obesity complicating childbirth; Z30.2 Encounter for sterilization; Z3A.39 39 weeks gestation of pregnancy; Z87.891 Personal history of nicotine dependence; Z83.3 Family history of diabetes mellitus; Z82.49 Family history of ischemic heart disease and other diseases of the circulatory system; Z37.0 Single live birth
CPT/HCPCS: 83036; 85025; 86850; 86900; 86901; 86920; 88302; 88307; 90707

== ENCOUNTER → 2022-08-11 | Outpatient (CLI) | payer OTHER ==
--- NOTE | 2022-08-11 10:32 | CT ---
EXAMINATION TYPE: CT abdomen wo con CT DLP: 873.5 mGycm, Automated exposure control for dose reduction was used. DATE OF EXAM: 08/11/2022 10:22 AM COMPARISON: None CLINICAL INDICATION:Female, 32 years old with history of R19.09 abdominal mass; Umbilical pain post p artum x2 months. TECHNIQUE: Standard CT of the abdomen following the administration of oral contrast. Coronal and sa gittal reformats were performed. FINDINGS: Evaluation is limited due to lack of intravenous contrast. LOWER CHEST: Unremarkable ABDOMEN LIVER: Diffusely hypoattenuating parenchyma. GALLBLADDER AND BILE DUCTS: Unremarkable. PANCREAS: Unremarkable noncontrast appearance SPLEEN: Unremarkable noncontrast appearance ADRENAL GLANDS: Unremarkable. KIDNEYS AND URETERS: No evidence of hydronephrosis or renal calculus. STOMACH AND BOWEL: No focal wall thickening or surrounding inflammatory changes. Enteric contrast fern ches the ileocecal junction. The visualized portions of the appendix are unremarkable. No evidence of bowel obstruction. PERITONEUM: No evidence of pneumoperitoneum or free fluid. VASCULATURE: No evidence of aortic aneurysm. There is some stranding around the right ovarian vein. T here is also slight asymmetric enlargement of the spleen. MUSCULOSKELETAL: No acute osseous abnormalities LYMPH NODES: No gross evidence for lymphadenopathy. SOFT TISSUE/ABDOMINAL WALL: Diastases rectus IMPRESSION: 1. 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 2. Hepatic steatosis.
== END | disposition home or self-care (01) ==
LOC: RADCTMAIN 09:26
PROVIDERS: ATTEND Student in an Organized Health Care Education/Training Program
DX: K76.0 Fatty (change of) liver, not elsewhere classified (principal); R19.09 Other intra-abdominal and pelvic swelling, mass and lump
CPT/HCPCS: 74150